=== PATIENT | female | born 1985 | race Two or more races ===

== ENCOUNTER 2023-06-30 10:49 | Emergency (ER) | payer OTHER ==
[2023-06-30] MEDS ORDERED: ACETAMINOPHEN 1000 MG/100 ML BAG IVPB ONE (11:06)
[2023-06-30] MEDS ORDERED: FAMOTIDINE 20 MG/50 ML IVPB 20 MG/50 ML MG IVPB ONE ×2 (11:06→11:54)
[2023-06-30] MEDS ORDERED: MAG HYDROX/AL HYDROX/SIMETH 30 ML UNIT-DOSE CUP PO ONE (11:06)
[2023-06-30 11:23] VITALS: TEMP 98.2; BMI 23.0
[2023-06-30] MEDS ORDERED: ACETAMINOPHEN INJECTION 100 ML IVPB ONE (11:54)
[2023-06-30] MEDS ORDERED: MAG HYDROX/AL HYDROX/SIMETH 30 ML UNIT-DOSE CUP ONE (11:54)
[2023-06-30] MEDS ORDERED: SODIUM CHLORIDE 1,000 ML IV STA (11:55)
[2023-06-30 12:17] VITALS: PULSE 80
[2023-06-30 12:24] LABS: HEMATOCRIT 43.3 % (32.4-45.2); HEMOGLOBIN 14.3 G/dL (10.7-15.3); MCH 31.3 pg (25.7-33.7); MEAN CELL VOLUME 94.9 fl (80-96); MEAN PLT VOLUME 8.2 fl (7.5-11.1); PLATELET COUNT 256.2 10^3/uL (134-434); RBC 4.56 10^6/uL (3.60-5.2); RDW 13.5 % (11.6-15.6); WHITE BLOOD COUNT 10.1 10^3/uL (4.0-10.8)
[2023-06-30 12:32] LABS: ALBUMIN 4.2 g/dl (3.4-5.0); BLOOD UREA NITROGEN 19.1 mg/dl (7-18); CREATININE 0.7 mg/dl (0.6-1.3); POTASSIUM 3.8 mmol/L (3.5-5.1); SGPT/ALT 11.6 U/L (7-52); TOT PROT 7.7 g/dl (6.4-8.2)
[2023-06-30 13:19] VITALS: BP 104/63; RESP 15
[2023-06-30 14:06] LABS: BILIRUBIN,TOTAL 0.4 mg/dL (0.2-1)
[2023-06-30 14:47] LABS: PLATELET ESTIMATE ADEQUATE
== END 2023-06-30 14:40 | disposition home or self-care (01) ==
LOC: FER 10:49
PROC: 3E033GC Introduction of Other Therapeutic Substance into Peripheral Vein, Percutaneous Approach (ICD-10-PCS; principal; 2023-06-30)
PROC: 3E033NZ Introduction of Analgesics, Hypnotics, Sedatives into Peripheral Vein, Percutaneous Approach (ICD-10-PCS; 2023-06-30)
PROC: 3E0337Z Introduction of Electrolytic and Water Balance Substance into Peripheral Vein, Percutaneous Approach (ICD-10-PCS; 2023-06-30)
DX: R07.89 Other chest pain (principal); R20.2 Paresthesia of skin; R11.0 Nausea; Z20.822 Contact with and (suspected) exposure to COVID-19
CPT/HCPCS: 0241U-QW; 36415; 71046-TC-FY; 80053; 81025; 83690; 84484; 85025; 93005; 99285-25